=== PATIENT | female | born 1980 | race Caucasian/White ===

== ENCOUNTER 2025-08-07 06:04 | Day surgery (SDC) | payer OTHER, SELFPAY ==
[2025-08-07 06:31] VITALS: BP 106/79; PULSE 62; RESP 16; TEMP 36.4; O2SAT 98
[2025-08-07] MEDS: Lactated Ringers 1,000 ML 80 ML IV (06:43)
--- NOTE | 2025-08-07 07:12 | W.ANESPRE ---
General Info Date of Service Date Performed: 08/07/25 Height: 5 ft 1 in Weight: 68.6 kg Body Mass Index (BMI): 28.5 Surgical Procedure: Operation Date: 08/07/25 07:35 Proposed Procedure Side Surgeon p Gastroscopy Lorri Medina MD Meds Allergies and Home Medications Allergies Allergy/AdvReac Type Severity Reaction Status Date / Time Penicillins Allergy Intermediate Rash and Verified 08/07/25 06:20 SOB Home Medication ?Medication ?Instructions ?Recorded multivitamin 1 tab PO DAILY 05/08/25 cholecalciferol (vitamin D3) 50 50 mcg PO DAILY 05/10/25 mcg (2,000 unit) capsule magnesium 250 mg tablet 250 mg PO DAILY 05/10/25 Current Visit Medications: Current Medications Generic Name Dose Route Start Last Admin Trade Name Freq PRN Reason Stop Dose Admin Ringer's Solution 1,000 mls @ 80 mls/hr 08/07/25 06:00 08/07/25 06:43 IV 08/07/25 23:59 80 mls/hr INFUSION SYL Administration IV Miscellaneous Supplies 1 each 08/07/25 06:00 Iv Access IV 08/07/25 23:59 DIRECTED SYL Sodium Chloride 0 ml 08/07/25 06:00 Normal Saline Flush 10 Ml Syr IV 08/07/25 23:59 PRN PRN Sodium Chloride 0 ml 08/07/25 06:00 Normal Saline 10 Ml Vial IJ 08/07/25 23:59 DIRECTED PRN Sterile Water 0 ml 08/07/25 06:00 Water,Injection,Sterile 10 Ml Vial IJ 08/07/25 23:59 DIRECTED PRN PFSH Active Problems Active Problems: Problem Status Onset Code Abnormal CT scan, stomach Acute R93.3 Bilateral lower abdominal cramping Acute R10.31, R10.32 Epigastric pain Acute R10.13 Abdominal pain, left lower quadrant Acute R10.32 Inguinal hernia, left Acute K40.90 Left groin mass Acute R19.09 Inguinal hernia Acute K40.90 Medical History Medical History History of breast lump Pyelectasis Advanced maternal age in multigravida ventricular septal defect affecting antepartum care of mother History of alcohol abuse (~2019) per referral has been sober since Surgical History Surgical History H/O dilation and curettage History of left knee surgery History of wisdom tooth extraction History of section (~01/05/23) X4 Tobacco Smoking/Tobacco Use Status: Never Alcohol Alcohol Intake: never Substance Use Substance use: Never Substance use type: does not use Vital Signs and Lab Results Vital Signs Most Recent Vital Signs in EMR: Most Recent Vital Signs Temp Pulse Resp BP Pulse Ox 36.4 C L 62 16 106/79 98 08/07/25 06:31 08/07/25 06:31 08/07/25 06:31 08/07/25 06:31 08/07/25 06:31 Point of Care Results Point of Care Results: POC- Test(urine) Negative 08/07/25 06:35 Anesthesia Assessment and Plan Anesthesia History Personal History: No History of Anesthesia Complications Family History: No Family History of Anesthesia Complications Exercise Tolerance Exercise Tolerance: Metabolic Equivalents>4 Pertinent Negatives Pertinent Negatives: No Symptoms of GERD Cardiac & Pulmonary Exam Cardiac Exam: Normal S1/S2 Heart Sounds Pulmonary Exam: Clear Bilateral Breath Sounds Implantable Cardiac Device Does patient have a Pacemaker or an ICD?: No Airway Exam Known Difficult Airway: No Mallampati Class: 1 Mouth Opening: Normal (> 3cm) Thyromental Distance: Less than 3 cm Neck Range of Motion: Full ROM Neck Circumference: Normal Teeth Condition: Normal Dentition ASA Classification ASA Score: ASA 2 Emergency Case?: No NPO Status NPO Status: NPO Clears >2 hours, Solids >8 hours Status Status: Negative HCG Anesthesia Plan Resuscitation Status: Full Code Anesthesia Technique: Labor Intrathecal Injection Airway Planned: Natural Airway Monitors Used: Standard Monitors
[2025-08-07 07:17] VITALS: BMI 28.5
--- NOTE | 2025-08-07 07:46 | W.PM.HP.N ---
Date of service: 08/07/25 Time of Service: 07:47 Assessment and Plan Assessment and plan (1) Abnormal CT scan, stomach: Status: Acute (2) Bilateral lower abdominal cramping: Status: Acute (3) Epigastric pain: Status: Acute Assessment and plan: proceed w EGD today. discussed procedure risks, benefits, alternatives and expectations. History of Present Illness Narrative: 45yo F here for EGD> HPI from office visit previously is as follows: seen by me previously for L inguinal hernia. I sent her for CT scan for the hernia and surgery planning, and it showed gastric thickening. She returns to review this. Hernia surgery has been postponed until a time when her post op activity restrictions can be followed better. She notes epigastric pain and lower abd discomfort. She reports constant mild stomach discomfort, described as a persistent ache. She has been under significant stress for the past 6 months and suspects this may be affecting her stomach. She has noticed an increase in urination since moving to her current location, particularly at night, and often experiences stomach discomfort during these times. She also reports gurgling sounds from her stomach at night. She uses a heating pad to alleviate these symptoms. She reports no changes in bowel habits, diarrhea, alternating diarrhea and constipation, or blood in her stool. She is currently taking a fiber supplement in tablet form, which she blends into a smoothie. She has been trying to reduce her intake of processed foods and increase her consumption of whole foods. She has a history of acid indigestion issues, which she attributes to poor self-care in her 20s and 30s, including unhealthy eating habits and excessive alcohol consumption. However, she has since improved her diet and lifestyle, avoiding fried foods due to their negative impact on her health. She has been diagnosed with diverticulosis, a condition that runs in her family, affecting both her mother and maternal grandfather. She is concerned about the potential development of diverticulitis, given her family history. She has been maintaining her exercise routine and avoiding strenuous activities to prevent worsening of her hernia. She believes the hernia was exacerbated last year when she was playing indoor soccer Denies interval changes. [facility] All Active Problems Abnormal CT scan, stomach (Acute) Bilateral lower abdominal cramping (Acute) Epigastric pain (Acute) Abdominal pain, left lower quadrant (Acute) Inguinal hernia, left (Acute) Left groin mass (Acute) Inguinal hernia (Acute) left Medical History History of breast lump Pyelectasis Advanced maternal age in multigravida ventricular septal defect affecting antepartum care of mother History of alcohol abuse (~2019) per referral has been sober since Surgical History H/O dilation and curettage History of left knee surgery History of wisdom tooth extraction History of section (~01/05/23) X4 Social History Smoking/Tobacco Use Status: Never Smoking risk assessment performed?: Yes Alcohol Intake: never Drug use: Never Substance use type: does not use Housing: house Meds Allergies and Home Medications Allergies Allergy/AdvReac Type Severity Reaction Status Date / Time Penicillins Allergy Intermediate Rash and Verified 08/07/25 06:20 SOB Home Medications ?Medication ?Instructions ?Recorded ?Confirmed ?Type multivitamin 1 tab PO DAILY 05/08/25 08/07/25 History cholecalciferol (vitamin D3) 50 50 mcg PO DAILY 05/10/25 08/07/25 History mcg (2,000 unit) capsule magnesium 250 mg tablet 250 mg PO DAILY 05/10/25 08/07/25 History Exam Narrative Exam Narrative: awake, NAD eomi, MMM midline trachea, neck is symmetric PULM: normal resp effort, equal chest rise with respiration, no wheezing audible CARDIAC: normal PMI, no jvd, regular rate, normal perfusion abdomen is nondistended. extremities are without deformity, normal movement of all four extremities speech is clear and coherent mood and affect are congruent, no focal neurological deficits skin without rash Results Last Vital Signs Temp 97.5 F L 08/07/25 06:31 Pulse 62 08/07/25 06:31 Resp 16 08/07/25 06:31 BP 106/79 08/07/25 06:31 Pulse Ox 98 08/07/25 06:31 Time Spent Time spent with Patient: <40 minutes Time was spent: preparing to see the patient(eg.review tests) and counseling the patient
--- NOTE | 2025-08-07 08:07 | STOM_PTH ---
PATIENT: Sayra Sales LOC: [facility] U#:[id number] AGE/SX: 45/F ROOM: RE08/07/[address]: Lorri Medina MD : 1980 BED: DIS: 08/07/2025 SPEC #: [id number] RECD: 08/07/25 12:33 STATUS: ENRIQUETARoberth RE #: [id number] BRANDON: 08/07/25 08:[address]: Lorri Medina DEPT: Surgical Specimen RECD BY: Maisha Salazar ENTERED: 08/07/25 12:35 SP TYPE: STOMACH OTHR DR: Yissel Wise, [employer] Tissues: 1 - STOMACH BIOPSY Procedures: GROSS AND MICRO LEVEL 4 Comments: [id number]
--- NOTE | 2025-08-07 08:09 | W.PM.DSUDISC ---
Date of service: 08/07/25 Discharge Plan Disposition Patient Disposition: Home Condition: Stable Discharge Details Attending Provider: Lorri Medina Primary Care Provider: Yissel Wise Home Meds and New Rx's Prescriptions: Continued multivitamin Tablet 1 tab PO DAILY magnesium 250 mg tablet 250 mg PO DAILY cholecalciferol (vitamin D3) 50 mcg (2,000 unit) capsule 50 mcg PO DAILY Discharge Instructions Additional Instructions: EGD today was to evaluate the stomach for any abnormalities that could account for the thickening seen on CT scan. The possibilities included ulcer disease, a growth or mass of the stomach, or a normal stomach that just looked thick on the scan because it was decompressed. Your EGD today shows a normal healthy esophagus, stomach and duodenum thankfully. No growths, no ulcers, no inflammatory changes. I did incidentally see that you have a small hiatal hernia that can cause reflux and heartburn, but that is not a dangerous or problematic finding, and does not make your stomach thick on CT. If you get heartburn, you can take over the counter pepcid or prilosec for it, and that is all we would need to do for the hiatal hernia associated reflux and heartburn. We do not fix hiatal hernias that are small, we focus on managing the reflux they cause with medication. Return to see me in office when you feel ready to fix your inguinal hernia. Activity:: Activity as Tolerated Diet:: As Tolerated DS: Diagnosis Discharge Diagnosis (1) Abnormal CT scan, stomach: Status: Acute (2) Epigastric pain: Status: Acute (3) Hiatal hernia with GERD without esophagitis: Status: Acute
--- NOTE | 2025-08-07 08:15 | W.PM.ENDDOP ---
Date of service: 08/07/25 Time of Service: 08:15 Endoscopy Report DATE OF PROCEDURE: 08/07/25 PRE-OP DIAGNOSIS: Epigastric pain, abnormal CT scan of stomach POST-OP DIAGNOSIS: same PROCEDURE: EGD with biopsy SURGEON: Lorri Medina ANESTHESIA TYPE: General:No Airway ESTIMATED BLOOD LOSS: 2 PATHOLOGY: other (1. antrum biopsy) COMPLICATIONS: None DISPOSITION: same day INDICATIONS: Evaluation of upper digestive system for epigastric pain source/cause, and ensure stomach findings on CT do not represent a mass growth or ulcer. PROCEDURE DESCRIPTION: Lubricated endoscope was passed through a bite block into the second portion of the duodenum. The endoscope was withdrawn and the duodenum stomach and esophageal mucosa examined. The duodenum appeared normal. There is no inflammation or ulceration or erosion. The antrum appears normal. The fundus appears normal. The cardia appears normal. The endoscope was retroflexed and there is a small hiatal hernia present. GE junction is at 33cm from the incisors. The distal esophagus is normal without ulceration, varices or candidiasis. The Z-line is regular and there is no evidence of Jorge's esophagus. Remainder of the esophagus appears normal Cold forceps biopsies obtained from the antrum for microscopic evaluation for H. pylori. The upper digestive system was desufflated and the endoscope withdrawn. No complications. Assessment and plan: Hiatal hernia without esophagitis Normal findings of stomach. CT scan thickening was likely due to nondistention. Antral biopsy follow up with management of H pylori if identified, I will contact the patient for treatment if indicated. Hiatal hernia related reflux can be managed as needed with OTC medications at this time.
[2025-08-07 08:16] VITALS: BP 104/65; PULSE 97; RESP 16; TEMP 36.1; O2SAT 96
--- NOTE | 2025-08-07 08:36 | W.ANESPOSTOP ---
Postoperative Evaluation Date, Time and Location Date Performed: 08/07/25 Time Performed: 08:36 Patient Location: Day Surgery Unit Vital Signs Most Recent Imported Vital Signs: Most Recent Vital Signs Temp Pulse Resp BP Pulse Ox 36.1 C L 97 H 16 104/65 96 08/07/25 08:16 08/07/25 08:16 08/07/25 08:16 08/07/25 08:16 08/07/25 08:16 Pain Score Most Recent Pain Score: Most Recent Pain Score Pain Level 0 08/07/25 08:16 Assessment Mental Status: Awake (Alert & Oriented to Patient Baseline) Airway and Respiratory Function: Patent airway with normal (patient baseline) respiratory exam Cardiovascular Function: Hemodynamically Stable Hydration Status: Adequately Hydrated Nausea & Vomiting: No Nausea or Vomiting Pain: Pt. Denies Any Pain Peripheral Nerve Block: Patient did not receive a nerve block
[2025-08-07 08:45] VITALS: BP 113/68; PULSE 78; RESP 16; TEMP 36; O2SAT 99
== END 2025-08-07 09:01 | disposition home or self-care (01) ==
PROVIDERS: PCP Nurse Practitioner Family; Visit Provider Surgery
PROC: 0DJ68ZZ Inspection of Stomach, Via Natural or Artificial Opening Endoscopic (ICD-10-PCS; CPT 43235; principal; 2025-08-07 07:30)
DX: R10.13 Epigastric pain (principal); R93.3 Abnormal findings on diagnostic imaging of other parts of digestive tract; K44.9 Diaphragmatic hernia without obstruction or gangrene; K21.9 Gastro-esophageal reflux disease without esophagitis; K31.9 Disease of stomach and duodenum, unspecified
CPT/HCPCS: 43239; 88305; J2003; J2704

== ENCOUNTER 2025-09-25 06:57 | Day surgery (SDC) | payer OTHER, SELFPAY ==
[2025-09-25] VITALS (31 sets, daily range): BP systolic 82–111; BP diastolic 42–68; PULSE 50–74; RESP 10–23; TEMP 36.2–36.8; O2SAT 95–99; BMI 28.4
--- NOTE | 2025-09-25 06:53 | W.ANESPRE ---
General Info Date of Service Date Performed: 09/25/25 Height: 5 ft 1 in Weight: 68.309 kg Body Mass Index (BMI): 28.4 Surgical Procedure: Operation Date: 09/25/25 07:55 Proposed Procedure Side Surgeon p Hernia Inguinal Laparoscopic w/Mesh, Diagnostic Laparoscopy, Lysis of Adhesions Left Lorri Medina MD Meds Allergies and Home Medications Allergies Allergy/AdvReac Type Severity Reaction Status Date / Time Penicillins Allergy Intermediate Rash and Verified 09/25/25 07:06 SOB Home Medication Medication Instructions Recorded multivitamin 1 tab PO DAILY 05/08/25 cholecalciferol (vitamin D3) 50 50 mcg PO DAILY 05/10/25 mcg (2,000 unit) capsule magnesium 250 mg tablet 250 mg PO DAILY 05/10/25 hydrocodone 5 mg-acetaminophen 325 1 tab PO Q6H PRN #10 tabs 09/25/25 mg tablet Current Visit Medications: Current Medications Generic Name Dose Route Start Last Admin Trade Name Freq PRN Reason Stop Dose Admin Ringer's Solution 1,000 mls @ 80 mls/hr 09/25/25 06:00 IV 09/25/25 23:59 INFUSION SYL Cefazolin Sodium/Dextrose 2 gm in 50 mls @ 100 mls/hr 09/25/25 06:00 Ancef Duplex IVPB 09/25/25 23:59 PREOP SYL IV Miscellaneous Supplies 1 each 09/25/25 06:00 Iv Access IV 09/25/25 23:59 DIRECTED SYL Sodium Chloride 0 ml 09/25/25 06:00 Normal Saline Flush 10 Ml Syr IV 09/25/25 23:59 PRN PRN Sodium Chloride 0 ml 09/25/25 06:00 Normal Saline 10 Ml Vial IJ 09/25/25 23:59 DIRECTED PRN Sterile Water 0 ml 09/25/25 06:00 Water,Injection,Sterile 10 Ml Vial IJ 09/25/25 23:59 DIRECTED PRN PFSH Active Problems Active Problems: Problem Status Onset Code Left-sided pelvic pain Acute R10.22 Hiatal hernia with GERD without esophagitis Acute K44.9, K21.[address] scan, stomach Acute R93.3 Bilateral lower abdominal cramping Acute R10.31, R10.32 Epigastric pain Acute R10.13 Abdominal pain, left lower quadrant Acute R10.32 Inguinal hernia, left Acute K40.90 Left groin mass Acute R19.09 Inguinal hernia Acute K40.90 Medical History Medical History History of cerebral angiography 2010-Pt states they thought she had an AVM but turned out to be a cyst-pt. states it is benign History of breast lump Pyelectasis ventricular septal defect affecting antepartum care of mother History of alcohol abuse (~2019) per referral has been sober since Surgical History Surgical History History of esophagogastroduodenoscopy (EGD) (~08/07/25) H/O dilation and curettage History of left knee surgery History of wisdom tooth extraction History of section (~01/05/23) X4 Tobacco Smoking/Tobacco Use Status: Former Tobacco Use Passive smoking exposure: Yes Alcohol Alcohol Intake: former Substance Use Substance use: Occasionally Substance use type: marijuana Details: edible gummies Prental History History 7 Para 4 Hx # Term Pregnancies Multiple births Hx # Pregnancies Ectopic pregnancies AB induced Hx Number of Living Children 4 AB spontaneous 3 Past Pregnancies Del. Date GA/Weeks # Preg Succ Route Wgt Sex Labor Lgth Anesthesia Location Prov Complic 07/08/05 Yes 3430.292 g Female 11/07/08 Yes 3486.991 g Male 09/09/14 7 No 02/07/15 7 No 09/09/15 6 No 08/06/16 Yes 3458.642 g Male 11/23/22 Yes 3005.049 g Female Vital Signs and Lab Results Vital Signs Most Recent Vital Signs in EMR: Temp Pulse Resp BP Pulse Ox 36.8 C 71 16 109/68 98 09/25/25 07:15 09/25/25 07:15 09/25/25 07:15 09/25/25 07:15 09/25/25 07:15 Anesthesia Assessment and Plan Anesthesia History Personal History: No History of Anesthesia Complications Family History: No Family History of Anesthesia Complications Exercise Tolerance Exercise Tolerance: Metabolic Equivalents>4 Pertinent Negatives Pertinent Negatives: No Major Cardiovascular Symptoms or Complaints Cardiac & Pulmonary Exam Cardiac Exam: Normal S1/S2 Heart Sounds Pulmonary Exam: Clear Bilateral Breath Sounds Implantable Cardiac Device Does patient have a Pacemaker or an ICD?: No Airway Exam Known Difficult Airway: No Mallampati Class: 1 Mouth Opening: Normal (> 3cm) Thyromental Distance: Less than 3 cm Neck Range of Motion: Full ROM Neck Circumference: Normal Teeth Condition: Normal Dentition ASA Classification ASA Score: ASA 2 Emergency Case?: No NPO Status NPO Status: NPO Clears >2 hours, Solids >8 hours Status Status: Negative HCG Anesthesia Plan Resuscitation Status: Full Code Anesthesia Technique: General Anesthesia Airway Planned: Endotracheal Tube Monitors Used: Standard Monitors and SedLine Preoperative Comments:: Reports no GERD symptoms today
[2025-09-25] MEDS: Lactated Ringers 1,000 ML 80 ML IV (07:30)
--- NOTE | 2025-09-25 07:47 | W.PM.DSUDISC ---
Date of service: 09/25/25 Discharge Plan Disposition Patient Disposition: Home Condition: Stable Discharge Details Attending Provider: Lorri Medina Primary Care Provider: Yissel Wise Home Meds and New Rx's Prescriptions: New hydrocodone-acetaminophen 5-325 mg tablet 1 tab PO Q6H PRN (Reason: pain) Qty: 20 0RF ibuprofen 800 mg tablet 800 mg PO Q8H PRNQty: 28 1RF Continued multivitamin Tablet 1 tab PO DAILY magnesium 250 mg tablet 250 mg PO DAILY cholecalciferol (vitamin D3) 50 mcg (2,000 unit) capsule 50 mcg PO DAILY Discharge Instructions Additional Instructions: Additional Instructions: Shower in 24 hours. Wash gently over skin glue with soapy hands, rinse, pat dry. Don't peel glue or submerge incisions under water. Do not clean the glue with rubbing alcohol or any solvents beyond your regular soap/body wash and water. The glue will start to come off on its own in about 2 weeks. Ok to walk, climb stairs, and resume normal activities of daily living. Do not lift/push/pull more than 20lb for 4 weeks. Do not exercise until cleared by surgeon in office. Swelling and bruising in the groin, incisions, and even down to the labia is normal and expected. This is harmless and will improve over time. Gently ice the swollen areas for 2-4 minutes at a time if desired for comfort. Monitor yourself for constipation during recovery. Add a stool softener or laxative if no BM within 36 hours. Call or return for fever, incisional problems, or uncontrolled pain. You had a lot of adhesions to the side wall of the pelvis from your colon. There were no adhesions from the uterus, fallopian tubes or ovaries to the abdominal wall. There were adhesions from the colon to your left ovary. All adhesions seen were taken down, and the hernia repaired. Hernia was very tight and scarred. I did not see clear endometriosis at all, but sent a biopsy of the scarred hernia sac to see if there was any endometriosis in the scarred part of the hernia. I expect after your recovery period that you will feel a lot better in regard to the preoperative pain. During recovery, I expect a lot of soreness in the left lower abdomen and also tight soreness in the right lower abdomen. Let me know if you need help with pain control. Use ibuprofen along with your prescribed hydrocodone. If one tablet does not control pain enough, you may take two tablets at a time, every 6 hours. If you run out of medications before your pain is manageable, please let me know. Stand Alone Forms: Portal Information Shower/Bathe:: 24 hours Diet:: As Tolerated Discharge Orders Discharge Orders: Discharge Order (Routine); Ordered 09/25/25 Ordered By: Lorri Medina DS: Diagnosis Discharge Diagnosis (1) Inguinal hernia, left: Status: Acute (2) Left-sided pelvic pain: Status: Acute (3) Pelvic peritoneal adhesions, female: Status: Acute
[2025-09-25] MEDS: ceFAZolin 2 GM/50 ML BAG IVPB (08:49)
--- NOTE | 2025-09-25 10:05 | HERN_PTH ---
PATIENT: Sayra Sales LOC: [facility] U#:[id number] AGE/SX: 45/F ROOM: RE09/25/[address]: Lorri Medina MD : 1980 BED: DIS: 09/25/2025 SPEC #: [id number] RECD: 09/25/25 12:29 STATUS: MARTA RENiru #: [id number] BRANDON: 09/25/25 10:[address]: Lorri Medina DEPT: Surgical Specimen RECD BY: Maisha Salazar ENTERED: 09/25/25 12:31 SP TYPE: Hernia Sac OTHR DR: DALTON Liang Tissues: 1 - HERNIA SAC, INGUINAL Procedures: GROSS LEVEL 1 Comments: [id number]
[2025-09-25] MEDS: Bupivacaine 0.25% Pres-Free W/EPI 30 ML VIAL (10:45)
--- NOTE | 2025-09-25 11:02 | W.PM.OP ---
Operative Note Operative Note PRE-OP DIAGNOSIS: left inguinal hernia, left pelvic pain POST-OP DIAGNOSIS: same (1. Left indirect inguinal hernia, sac incarcerated. 2. pelvic adhesions) PROCEDURE: 1. diagnostic laparoscopy with lysis of adhesions. 2. Laparoscopic transabdominal preperitoneal repair of incarcerated left inguinal hernia with mesh. SURGEON: Lorri Medina CUSTOMER EXPERT: Kirby Guerrero ANESTHESIA TYPE: Local By Surgeon and General LMA/ETT ESTIMATED BLOOD LOSS: 50 PATHOLOGY: other (1. left inguinal hernia sac) COMPLICATIONS: None Implants: BARD 3D MID mesh, large left sided Findings: incarcerated left inguinal hernia. Adhesions from sigmoid to left adnexa, adhesions from sigmoid to left pelvic side wall. Procedure Description: This is a 45yo female with a left inguinal hernia and pelvic pain on the left. She was seen in the office and scheduled for diagnostic laparoscopy to rule out endometriosis, lysis of adhesions, and a laparoscopic repair of the left inguinal hernia. On the day of surgery informed consent was confirmed. We had discussed risks, benefits, alternatives and expectations in office. The patient asked good questions and verbalized understanding of the plan. She was taken to the operating room The operating room she was placed supine on the operating table. SCDs were placed and all pressure points were padded appropriately. General anesthesia was induced. Lyons catheter was placed. The abdomen and groin was clipped prepped and draped in the usual sterile fashion. Timeout was performed. Local anesthetic was infiltrated into the skin and subcutaneous tissues at each port access site. A veress needle was used to access the LUQ. Saline drop test was completed, and the abdomen insufflated to 15 mmHg. A right sided abdominal port was placed using Visiport technique. The veress access site and the underlying intestine were examined, no injury from access or port placement. An umbilical and a left upper 5mm port were then placed under direct visualization. The patient was placed in Trendelenburg position and rotated to her right. The abdomen and pelvis were examined. The uterus appeared overall normal, though suggestion of fibroids was possible. The right fallopian tube and ovary were normal in appearance. No adhesions. The left tube and ovary were normal in appearance. The sigmoid colon was noted to be tensely adhesed to the right adnexa by a cord like adhesion. The sigmoid was also noted to be abnormally positioned against the left pelvic sidewall without the normal flexibility of the colon. The adhesions extended up the left pelvic sidewall. LigaSure device was used to free the sigmoid colon from the adnexa, and from the left pelvic sidewall along the White Line of [place]. It was freed inferiorly in the pelvis as well and was mobilized well. Care was taken to maintain the peritoneal surface of the left abdominal and pelvic sidewalls. The peritoneum was not opened or violated. The ureter location was confirmed and protected. An incarcerated extension of peritoneum up the left round ligament was visualized into the left inguinal canal. This confirmed the preoperative diagnosis of left inguinal hernia. The left inguinal hernia was approached for repair. The right lower quadrant port was upsized to a 12mm port. Ligasure device was used to open the peritoneum along the anterior midline abdominal wall below the semilunar line. This was opened laterally to the left hip, and inferiorly to the pubic bone using Ligasure and blunt dissection. The inguinal canal was exposed. The pubic bone was cleared of filmy adhesions to the midline. The lateral wall was cleared bluntly to expose the muscle. The inferior epigastric vessels were followed inferiorly to the inguinal ring. The hernia sac was noted to be tightly incarcerated high along the round ligament as an indirect inguinal hernia. The sac was dissected bluntly from the round ligament. Ligasure was needed to free it higher along the canal where it was densely scarred. An area of nodular and friable material on the sac was encountered, and a portion of this removed with ligasure for biopsy to evaluate for endometriosis along the hernia sac. Ligasure was used to take the sac down fully. The sac was densely scarred to the round ligament and recurrence of hernia was felt to be likely along this pathway, so the round ligament was cut with Ligasure to ensure it no longer communicated with the inguinal canal. The hernia sac and round ligament were confirmed to be low and posterior in the preperitoneal space. A large sized 3D MID mesh was selected for the repair. The mesh was rolled and introduced through the 12mm port. It was positioned within the open preperitoneal space, over the direct and indirect spaces. It was tacked to the iliopubic tract at 3 points using nonabsorbable tacs. There was adequate coverage and generous overlap of the direct and indirect hernia spaces by the mesh. There was no evidence of obturator or femoral hernia from this view. Bleeding from the pubic bone at the location of the second tac was noted. Pressure was held over the site with a [email or web address] sponge and grasper for 5 minutes, and hemostasis was confirmed. The preperitoneal space was then closed over the mesh repair using absorbable tacks along the abdominal wall. There was full coverage of the mesh by peritoneum. The mesh was confirmed to stay in flat and in good position over the inguinal canal. The right lower quadrant port site was closed using 0 Vicryl sutures, one figure of eight and one interrupted stitch. Bleeding from closure site was controlled when the sutures were tied down. The abdomen and pelvis were examined and hemostasis confirmed. Irrigation fluid was used to wash in the pelvis and fluid and blood were suctioned clean. Hemostasis confirmed. The abdomen was desufflated under direct visualization. Scope and ports were removed. The skin at each port site was closed with simple interrupted subcuticular 4-0 Monocryl. The skin was washed and dried, and skin glue was applied to the incisions. All sponge and instrument counts were correct at the end the case. The patient tolerated the procedure well. Lyons catheter was removed. She extubated in the operating room and transferred to the recovery room in stable condition. There were no complications. Date of Procedure: 09/25/25
[2025-09-25] MEDS: HYDROmorphone 2 MG/ML SYR IVP (11:23)
[2025-09-25] MEDS: ePHEDrine 25 MG/5 ML Syringe IVP ×2 (11:43→11:56)
[2025-09-25] MEDS: oxyCODONE 5 MG TAB PO (12:39)
--- NOTE | 2025-09-25 14:08 | W.ANESPOSTOP ---
Postoperative Evaluation Date, Time and Location Date Performed: 09/25/25 Time Performed: 11:15 Patient Location: PACU Vital Signs Most Recent Imported Vital Signs: Most Recent Vital Signs Temp Pulse Resp BP Pulse Ox 36.3 C L 69 16 100/65 97 09/25/25 12:47 09/25/25 12:47 09/25/25 12:47 09/25/25 12:47 09/25/25 12:47 Pain Score Most Recent Pain Score: Most Recent Pain Score Pain Level 7 09/25/25 12:47 Assessment Mental Status: Arousable with meaningful communication Airway and Respiratory Function: Patent airway with normal (patient baseline) respiratory exam Cardiovascular Function: Hemodynamically Stable Hydration Status: Adequately Hydrated Nausea & Vomiting: No Nausea or Vomiting Pain: Pt. Denies Any Pain Peripheral Nerve Block: Patient did not receive a nerve block
== END 2025-09-25 13:41 | disposition home or self-care (01) ==
PROVIDERS: PCP Nurse Practitioner Family; Visit Provider Surgery
PROC: (CPT 49650; principal; 2025-09-25 07:45)
DX: K40.91 Unilateral inguinal hernia, without obstruction or gangrene, recurrent (principal); R10.22 Pelvic and perineal pain left side; N73.6 Female pelvic peritoneal adhesions (postinfective)
CPT/HCPCS: 49650; 81025; 88300; C1781; J0131; J0690; J1100; J1171; J2003; J2250; J2405; J2704; J3010

== ENCOUNTER → 2025-11-08 10:22 | Outpatient (CLI) | payer OTHER, SELFPAY ==
--- NOTE | 2025-11-08 06:30 | DI.MAMMO_ITS ---
Exam(s) MAMMO SCREENING EXAM: MAMMO SCREENING CLINICAL HISTORY: screening,H/O LUMP/LYMPH NODE RT,H/O RT BREAST PAIN PREVIOUSLY, NO NEW PAIN TECHNIQUE: Mammograms were interpreted according to the usual protocol including computer analysis with CAD system, tomosynthesis and C-view imaging. COMPARISON: Outside exam from 2020 through 2023 FINDINGS: The breasts are composed of heterogeneously dense fibroglandular densities, Breast Density category C. No suspicious masses or suspicious microcalcifications are seen. No skin thickening or abnormal axillary lymph nodes are seen. There has been no significant change from prior exams. IMPRESSION: BI-RADS Category 1, Negative mammogram. Yearly screening mammography is recommended. Breast Density: Category C - The breasts are heterogeneously dense, which may obscure small masses. Breast density Category C or D implies that the patient has dense breast tissue. Dense breast tissue can make it harder to find cancer on a mammogram. Dense breast tissue is also associated with an increased risk of breast cancer. This information about the result of the mammogram report was provided to the patient to raise their awareness. Use this report when you speak with the patient about their risks for breast cancer, which includes their family history. At that time, you may recommend additional screening tests (Ultrasound or MRI) as these tests may add significant information. A negative radiographic report should not delay biopsy if a dominant or clinically suspicious mass is present. Up to ten percent of cancers are not identified on mammography. A negative report may reinforce clinical impression. Adenosis and dense breasts may obscure an underlying neoplasm. False positive reports average 6 to 10%.
== END ==
LOC: DI 10:22
PROVIDERS: PCP Nurse Practitioner Family; Visit Provider Advanced Practice Midwife
DX: Z12.31 Encounter for screening mammogram for malignant neoplasm of breast (principal); Z87.898 Personal history of other specified conditions; N64.4 Mastodynia; R92.323 Mammographic fibroglandular density, bilateral breasts; R92.333 Mammographic heterogeneous density, bilateral breasts
CPT/HCPCS: 77063; 77067